=== PATIENT | male | born 1985 | race Caucasian/White ===

== ENCOUNTER 2023-09-19 12:06 | Emergency (ER) | payer MEDICAID ==
[~2023-09-19] VITALS: Ht 172.7 cm; Wt 64.0 kg
[2023-09-19 12:34] VITALS: O2SAT 98
[2023-09-19 13:36] LABS: BASOPHILS % 0.5 % (0.0-2.0); EOSINOPHILS % 0.1 % (0.0-5.0); HEMATOCRIT. 50.6 % (42.0-52.0); HEMOGLOBIN. 17.8 g/dL (14.0-18.0); LYMPHOCYTES % 15.2 % (20.0-50.0); MEAN CORPUSCULAR HGB CONC 35.3 g/dL (31.0-37.0); MEAN CORPUSCULAR VOLUME 85.1 fL (80.0-94.0); MEAN PLATELET VOLUME 7.6 fl (7.4-10.4); MONOCYTES % 13.7 % (2.0-8.0); NEUTROPHILS % 70.5 % (40.0-76.0); PLATELET 255 x1000/uL (130-400); RED BLOOD CELL COUNT 5.94 mill/uL (4.7-6.1); RED CELL DISTRIBUTION WIDTH 12.8 % (11.6-14.6); WHITE BLOOD COUNT 6.2 x1000/uL (4.5-11.0)
[2023-09-19] MEDS: ONDANSETRON HCL 4MG/2ML INJ IV STA (13:47)
[2023-09-19] MEDS: KETOROLAC 30MG/ML VIAL IV STA (13:50)
[2023-09-19] MEDS: FAMOTIDINE 20MG/2ML VIAL IV STA (13:50)
[2023-09-19 14:05] LABS: ALANINE AMINOTRANSFERASE 29 IU/L (10-49); ALBUMIN 5.3 g/dL (3.2-4.8); ASPARTATE AMINOTRANSFERASE 30 IU/L (<34); BILIRUBIN TOTAL 0.9 mg/dL (0.1-1.0); CALCIUM 9.4 mg/dL (8.7-10.4); CARBON DIOXIDE 24 mEq/L (21-32); CHLORIDE 99 mEq/L (98-107); CREATININE 1.6 mg/dL (0.6-1.3); GLUCOSE 121 mg/dL (70-105); POTASSIUM 4.2 mEq/L (3.5-5.1); PROTEIN TOTAL 9.1 g/dL (6.0-8.3); SODIUM 132 mEq/L (136-145); UREA NITROGEN BLOOD 23 mg/dL (9-23)
[2023-09-19 14:26] LABS: CLARITY URINE CLEAR (CLEAR); COLOR URINE YELLOW (YELLOW); GLUCOSE URINE NEGATIVE (NEGATIVE); KETONES URINE NEGATIVE (NEGATIVE); LEUKOCYTE ESTERASE URINE NEGATIVE (NEGATIVE); NITRITE URINE NEGATIVE (NEGATIVE); OCCULT BLOOD URINE 2+ (NEGATIVE); PROTEIN URINE 1+ (NEGATIVE); UROBILINOGEN URINE 0.2 E.U./dL (0.2-1.0)
[2023-09-19 14:46] LABS: BACTERIA URINE 1+; MUCUS URINE TRACE /lpf (NONE/TRACE); SQUAMOUS EPITHELIAL CELL URINE NONE SEEN /lpf (RARE/1+)
[2023-09-19 14:48] LABS: WBC URINE 0-2 /hpf (0-2)
[2023-09-19] MEDS ORDERED: OMEP20CA14 MT (14:48)
[2023-09-19] MEDS ORDERED: ACET-2708 PO (14:48)
[2023-09-19] MEDS ORDERED: METR-167 MT (14:48)
[2023-09-19] MEDS ORDERED: ONDA4TAB50 MT (14:51)
[2023-09-19 15:14] VITALS: BP 117/84; PULSE 90; RESP 20; TEMP 98
== END 2023-09-19 15:15 | disposition home or self-care (01) ==
LOC: ER 12:06
DX: K52.9 Noninfective gastroenteritis and colitis, unspecified (principal); R11.2 Nausea with vomiting, unspecified; R31.9 Hematuria, unspecified
CPT/HCPCS: 99285; 74177; 96374; 71045; 96375; 80053; 81003; 83690; 85025; 36415; J3490; J1885; J2405